=== PATIENT | female | born 2000 | race Caucasian/White ===

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

== ENCOUNTER 2021-08-22 04:08 | Outpatient (CLI) | payer MEDICAID ==
[2021-08-22] MEDS ORDERED: LACTATED RINGERS 1,000 ML IV ONE (04:39)
[2021-08-22] MEDS ORDERED: LACTATED RINGERS 1,000 ML ONE (04:42)
[2021-08-22 05:15] LABS: Bacteria,Urine 1+ /HPF (Negative); Bilirubin,Urine NEG (Negative); Blood,Urine NEG (Negative); Color,Urine Straw (Yellow); Mucus,Urine FEW /HPF; Protein,Urine <15 mg/dL mg/dL (Negative); RBC,Urine < 1.0 /HPF (0.0-6.0); Urobilinogen,Urine < 2.0 mg/dL (<2.0)
[2021-08-22 06:44] LABS: Basophils % (Auto) 0.2 % (0.0-1.8); Eosinophils # (Auto) 0.1 K/mm3 (0.0-0.4); Eosinophils % (Auto) 0.9 % (0.0-4.3); Hematocrit 34.5 % (30.3-42.9); Hemoglobin 11.4 gm/dl (10.1-14.3); Lymphocytes # (Auto) 2.4 K/mm3 (1.2-5.4); Lymphocytes % (Auto) 23.5 % (13.4-35.0); Mean Corpuscular HGB Conc 33 % (30-34); Mean Corpuscular Volume 85 fl (79-97); Monocytes # (Auto) 0.7 K/mm3 (0.0-0.8); Monocytes % (Auto) 7.1 % (0.0-7.3); Platelet Count 289 K/mm3 (140-440); Red Blood Count 4.04 M/mm3 (3.65-5.03); Red Cell Distribution Width 13.6 % (13.2-15.2)
[2021-08-22] MEDS ORDERED: ACETAMINOPHEN W/CODEINE 300-30 MG TAB PO ONE (06:46)
[2021-08-22] MEDS ORDERED: MORPHINE 2 MG/1 ML INJ IV NR (07:43)
--- NOTE | 2021-08-22 07:49 | Event Note ---
Date: 08/22/21 /[facility] DC's: no complaints of decreased movement, leaking fluid or abdominal pain +ve back pain: +ve UTI; IV ancef given with IV Morphine 2mgx1 dose NST reactive for gestational age DC home Geoffrey Avalos MD
[2021-08-22 10:18] VITALS: BP 100/58
--- NOTE | 2021-08-22 10:52 | Ultrasound Report ---
ULTRASOUND RENAL INDICATION / CLINICAL INFORMATION: back pain. COMPARISON: None available. FINDINGS: RIGHT KIDNEY: Size (in cm): 13.3 - Echogenicity: Normal. - Parenchymal Thickness: Normal. - Hydronephrosis: None. - Cyst or mass: No significant abnormality. - Stones: None seen. LEFT KIDNEY: Size (in cm): 13.3 - Echogenicity: Normal. - Parenchymal Thickness: Normal. - Hydronephrosis: None. - Cyst or mass: No significant abnormality. - Stones: None seen. URINARY BLADDER: No significant abnormality. FREE FLUID: None. ADDITIONAL FINDINGS: None. IMPRESSION: No significant sonographic abnormality of the kidneys. Signer Name: Madhu Zelaya MD Signed: 08/22/2021 10:48 AM Workstation Name: [id number]
[2021-08-22] MEDS ORDERED: NIFEdipine*For Tocolysis only* 10 MG CAPSULE PO ONE (12:00)
== END 2021-08-22 12:41 | disposition home or self-care (01) ==
LOC: TRG 04:08 → APU 04:36 → TRG 12:41
PROVIDERS: ATTEND Obstetrics & Gynecology
DX: O26.893 Other specified pregnancy related conditions, third trimester (principal); M54.50 Low back pain, unspecified; Z3A.28 28 weeks gestation of pregnancy
CPT/HCPCS: 36415; 59025; 76770; 81001; 85025; 87086; 96361; 96365; 96368; J0690; J2270; J7120; 96360; 96374

== ENCOUNTER 2021-10-17 15:35 | Outpatient (CLI) | payer MEDICAID ==
[2021-10-17] MEDS ORDERED: LACTATED RINGERS 500 ML IV ONE (17:01)
[2021-10-17 18:36] LABS: Bilirubin,Urine Negative (Negative); Blood,Urine Negative (Negative); Color,Urine Yellow (Yellow); Urobilinogen,Urine < 2.0 mg/dL (<2.0)
[2021-10-17 18:49] LABS: Bacteria,Urine 2+ /HPF (Negative); Mucus,Urine FEW /HPF
[2021-10-17 20:12] VITALS: BP 108/57
== END 2021-10-17 20:19 | disposition home or self-care (01) ==
LOC: TRG 15:35 → APU 15:36 → TRG 20:19
PROVIDERS: ATTEND Obstetrics & Gynecology
DX: O47.03 False labor before 37 completed weeks of gestation, third trimester (principal); Z3A.36 36 weeks gestation of pregnancy
CPT/HCPCS: 81001; 87086